=== PATIENT | female | born 1995 ===

== ENCOUNTER 2023-07-02 13:28 | Observation (INO) | payer OTHER, SELFPAY ==
[2023-07-02] MEDS ORDERED: PREN1TAB71 OR (13:52)
== END 2023-07-02 14:38 | disposition home or self-care (01) ==
LOC: LDRP 13:28
PROVIDERS: ADMIT Obstetrics & Gynecology; ATTEND Obstetrics & Gynecology
DX: O26.893 Other specified pregnancy related conditions, third trimester (principal); R10.9 Unspecified abdominal pain; Z3A.35 35 weeks gestation of pregnancy
CPT/HCPCS: 59025; 81002; 94760; G0378